=== PATIENT | female | born 1985 | race Caucasian/White ===

== ENCOUNTER 2016-10-16 15:25 | Emergency (ER) | payer OTHER ==
[~2016-10-16] VITALS: Ht 165.1 cm; Wt 61.2 kg
[2016-10-16 15:43] LABS: ABSOLUTE BASOPHIL COUNT 0 /CUMM (0.0-0.2); ABSOLUTE EOSINOPHIL COUNT 0 /CUMM (0.0-0.7); ABSOLUTE GRANULOCYTE CT 5.6 /CUMM (1.4-6.5); ABSOLUTE LYMPH COUNT 1.8 /CUMM (1.2-3.4); ABSOLUTE MONOCYTE COUNT 0.5 /CUMM (0.10-0.60); BASOPHIL % 0.2 % (0.0-2.0); EOSINOPHIL % 0.3 % (0-5); GRANULOCYTE % 70.2 % (42.2-75.2); MEAN CORPUSCULAR HGB CONC 34.2 G/DL (33.0-37.0); MEAN CORPUSCULAR VOLUME 84.6 FL (81.0-99.0); MEAN PLATELET VOLUME 8.3 FL (7.4-10.4); PLATELET COUNT 173 /CUMM (130-400); RBC DISTRIBUTION WIDTH 12.5 % (11.5-14.5); RED BLOOD CELL CT 5.09 /CUMM (4.20-5.40)
--- NOTE | 2016-10-16 16:22 | ED GI/GU/ABDOMINAL COMPLAINT ---
History of Present Illness General Chief Complaint: Abdominal Pain/Flank Pain Stated Complaint: ABD PAIN R/O APPY PER WALK-IN Source: patient, family, old records Exam Limitations: no limitations Vital Signs & Intake/Output Vital Signs & Intake/Output Vital Signs Date Time Temp Pulse Resp B/P B/P Pulse O2 O2 Flow FiO2 Mean Ox Delivery Rate 10/16 1740 98.1 91 20 143/92 100 Room Air 10/16 1528 97.8 118 18 152/92 98 Room Air ED Intake and Output 10/17 0000 10/16 1200 Intake Total Output Total Balance Patient 135 lb Weight Weight Reported by Patient Measurement Method Allergies Coded Allergies: sulfamethoxazole (From BACTRIM) (Mild, RASH 10/16/16) trimethoprim (From BACTRIM) (Mild, RASH 10/16/16) Reconcile Medications Cholecalciferol (Vitamin D3) (Vitamin D3) (Unknown Strength) CAPSULE (Unknown Dose) PO DAILY SUPPLEMENT (Reported) Cyanocobalamin (Vitamin B-12) (Unknown Strength) TABLET (Unknown Dose) PO DAILY SUPPLEMENT (Reported) Desog-E.estradiol/E.estradiol (Kariva 28 Day Tablet) 0.15 MG-0.02 MG (21)/0.01 MG (5) TABLET 1 TAB PO DAILY CONTROL (Reported) Ketorolac Tromethamine 10 MG TABLET 1 TAB PO Q4 PRN Abdominal Pain Loratadine (Claritin) 10 MG TABLET 1 TAB PO DAILY ALLERGIES (Reported) Triage Note: 31 YO FEMALE TO TRIAGE C/O ABD PAIN. STATES PAIN STARTED IN MID ABD AND NOW HAS MOVED TO RLQ. +NAUSEA. SENT IN BY WALK IN TO R/O APPY. Triage Nurses Notes Reviewed? yes ? N Is pt currently ? No HPI: Ms Beckett is a 31-year-old female with past medical history or umbilical hernia done at age 9 who presented to the emergency department due to worsening abdominal pain. Patient states that her symptoms began at 7 PM last evening. Originating in the periumbilical area. This morning she woke up and went to work and found that the pain had migrated from the periumbilical area to the right lower quadrant. It is rated at a 7 out of 10 in severity. Described as a dull pain. Patient also endorses nausea however has had no episodes of any vomiting. She also endorses subjective chills. This morning prior to coming to the emergency department [facility] she was seen at a walk-in clinic where she was advised to come into the emergency department for additional workup. Patient primary care physician is Dr. BOOM Buchanan. (VERONICA STARKEY,SHLOMO) Past History Travel History Traveled to [place] past 21 day No Medical History Any Pertinent Medical History? see below for history Neurological: NONE EENT: NONE Cardiovascular: NONE Respiratory: NONE Gastrointestinal: NONE Hepatic: NONE Renal: NONE Musculoskeletal: NONE Psychiatric: NONE Endocrine: NONE Blood Disorders: NONE Cancer(s): NONE OR RN/Reproductive: NONE Surgical History Surgical History: none Psychosocial History What is your primary language Swedish Tobacco Use: Never used Family History Hx Contributory? No (VERONICA STARKEY,SHLOMO) Review of Systems Review of Systems Constitutional: Reports: see HPI, chills, weakness. Denies: diaphoresis, fever, malaise. Respiratory: Denies: hemoptysis, orthopnea, short of breath, sputum production. Cardiovascular: Denies: chest pain, edema, orthopena, palpitations. GI: Reports: abdominal pain, nausea. Denies: bloating, constipation, diarrhea, distention, bowel incontinence, bloody stool, changes in stool, vomiting. Genitourinary: Denies: discharge, dysuria, frequency, hematuria. Musculoskeletal: Denies: back pain, gout, joint pain, joint swelling. Skin: Denies: change in skin color, change in hair/nails, dryness, erythema, jaundice. Neurological/Psychological: Denies: anxiety, ataxia, cognitive dysfunction, confusion, depressed, dementia. (VERONICA STARKEY,SHLOMO) Physical Exam Physical Exam General Appearance: well developed/nourished, no apparent distress, alert, awake Eyes: Bilateral: PERRL, EOMI. Ears, Nose, Throat, Mouth: hearing grossly normal Neck: normal inspection Respiratory: normal breath sounds Cardiovascular: regular rate/rhythm Peripheral Pulses: 4+ dorsalis pedis (R), 4+ dorsalis pedis (L) Gastrointestinal: normal bowel sounds, guarding, rebound, tenderness (On Light Palpation), Periumbilical Scar Rectal: deferred Back: normal inspection Core Measures ACS in differential dx? No Severe Sepsis Present: No Septic Shock Present: No (SHLOMO MARTIN MD) Physical Exam Extremities: normal range of motion Neurologic/Psych: no motor/sensory deficits, awake, alert, oriented x 3 Skin: intact, normal color, warm/dry (CHELSIE STARKEY,SHAD) Progress Differential Diagnosis: appendicitis, endometritis, gastritis, pancreatitis Plan of Care: Orders Procedure Date/time Status Add-on Test (ER Only) 10/16 1622 Active C-REACTIVE PROTEIN 10/16 1534 Complete URINE 10/16 1530 Complete URINALYSIS 10/16 1530 Complete COMPREHENSIVE METABOLIC PANEL 10/16 1530 Complete CBC WITHOUT DIFFERENTIAL 10/16 1530 Complete Current Medications Sig/Christin Start time Last Medication Dose Stop Time Status Admin Ketorolac 30 MG ONCE ONE 10/16 1800 CAN Tromethamine 10/16 1801 (Toradol) Laboratory Tests 10/16/16 1545: Urine Color YEL, Urine Clarity CLEAR, Urine pH 6.0, Ur Specific Lyles 1.010, Urine Protein NEG, Urine Ketones 15 H, Urine Nitrite NEG, Urine Bilirubin NEG, Urine Urobilinogen 0.2, Ur Leukocyte Esterase NEG, Ur Microscopic EXAM NOT REQUIRED, Urine Hemoglobin NEG, Urine Glucose NEG, Urine Test NEGATIVE 10/16/16 1534: Anion Gap 14, Estimated GFR > 60, BUN/Creatinine Ratio 15.7, Glucose 88, Calcium 9.1, Total Bilirubin 0.7, AST 22, ALT 26, Alkaline Phosphatase 76, C-Reactive Prot, Quant 6.5 H, Total Protein 7.7, Albumin 4.2, Globulin 3.5, Albumin/ Globulin Ratio 1.2, CBC w Diff NO MAN DIFF REQ, RBC 5.09, MCV 84.6, MCH 29.0, RDW 12.5, MPV 8.3, Gran % 70.2, Lymphocytes % 22.6, Monocytes % 6.7, Eosinophils % 0.3, Basophils % 0.2, Absolute Granulocytes 5.6, Absolute Lymphocytes 1.8, Absolute Monocytes 0.5, Absolute Eosinophils 0, Absolute Basophils 0, PUBS MCHC 34.2 Initial ED EKG: none (VERONICA STARKEY,SHLOMO) Diagnostic Imaging: Viewed by Me: CT Scan. Discussed w/RAD: CT Scan. Comments: PATIENT: DONNY BECKETT PRESENT AGE: 31 PATIENT ACCOUNT NO: [id number] : 84 LOCATION: ER ORDERING PHYSICIAN: SHLOMO MARTIN MD SERVICE DATE: 10/16/16-1639 EXAM TYPE: CAT - CT ABD & PELVIS W IV CONTRAST EXAMINATION: CT ABDOMEN AND PELVIS WITH CONTRAST CLINICAL INFORMATION: Pain, abdominal guarding. Rebound tenderness. COMPARISON: None TECHNIQUE: Multidetector volumetric imaging was performed of the abdomen and pelvis before and after the IV administration of 95 mL of Optiray 320 intravenous contrast. Sagittal and coronal reformatted images were obtained on the technologist's workstation. DLP: 286 mGy-cm FINDINGS: LUNG BASES: The visualized lung bases are unremarkable. LIVER, GALLBLADDER, AND BILIARY TREE: The liver is normal in size, shape, and attenuation. No focal hepatic lesion or biliary ductal dilatation is present. The gallbladder is unremarkable with no evidence of radiopaque gallstones, gallbladder wall thickening, or obvious pericholecystic inflammatory changes. PANCREAS: Unremarkable. SPLEEN: Unremarkable. ADRENAL GLANDS: Unremarkable. KIDNEYS AND URETERS: The kidneys are normal in size, shape, and attenuation. No hydronephrosis, hydroureter, or calculi seen. No perinephric stranding. BLADDER: Unremarkable. GASTROINTESTINAL TRACT: The stomach and small bowel are unremarkable. No dilated loops of bowel or evidence of obstruction. No colonic wall thickening or inflammatory change. Moderate colonic stool burden. The appendix is normal. It is in a retrocecal position. ABDOMINAL WALL: No significant hernia is appreciated. LYMPH NODES: Mildly prominent central mesenteric lymph nodes. For instance, there is a 1.7 x 0.7 cm node on series 2 image 47. No retroperitoneal lymphadenopathy. VASCULAR: Unremarkable. PELVIC VISCERA: The uterus and adnexa are unremarkable. OSSEOUS STRUCTURES: No acute or suspicious osseous abnormality. IMPRESSION: Normal appendix. Mildly prominent central mesenteric lymph nodes are nonspecific. This could represent mesenteric adenitis. No retroperitoneal lymphadenopathy. If symptoms persist, follow-up could be performed to exclude a lymphoproliferative process. DICTATED BY: CASH STARKEY,ELIZA DATE/TIME DICTATED:10/16/161738 BAKELITE MOLDER:MILADY DATE/TIME TRANSCRIBED:10/16/161738 CONFIDENTIAL, DO NOT COPY WITHOUT APPROPRIATE AUTHORIZATION. <Electronically signed in Other Vendor System> SIGNED BY: CASH STARKEY,ELIZA 10/16 1748 (SHAD HOLGUIN MD) Departure Departure Disposition: HOME OR SELF CARE Condition: Stable Clinical Impression Primary Impression: Mesenteric adenitis Referrals: HAI SATRKEY,DONNA T. Please follow-up with the clinic coordinator in the next seven days. BARBARA STARKEY,Toya BUCIO (PCP/Family) Additional Instructions: Please inform your primary care physician of this visit to the emergency department this afternoon. Please inform your primary care physician of the treatment administered to you. Please advance your diet as tolerated. Please take medications as needed for local pain relief. We have given you a referral for gastroenterology. Please follow-up with them in the next 24-48 hours. If you feel your pain is worsening, or you develop fever, chills, nausea, vomiting please come back to the emergency department for an additional workup. Departure Forms: Customer Survey General Discharge Information Prescriptions: Current Visit Scripts Ketorolac Tromethamine 1 TAB PO Q4 PRN Abdominal Pain #20 TAB (VERONICA STARKEY,[facility]) Resident Co-Sign Statement Statement: ED Attending supervision documentation- [X] I saw and evaluated the patient. I have also reviewed all the pertinent lab results and diagnostic results. I agree with the findings and the plan of care as documented in the Resident's documentation. [X] I have reviewed the ED Record and agree with the Resident's documentation. [] Additions or exceptions (if any) to the Resident's note and plan are summarized below: [] (SHAD HOLGUIN MD) ED Attending Observation Initial Observation Note: I have seen and personally examined DONNY BECKETT on 10/17/16 at 1336. I agree with the current emergency department documentation. The disposition (admission or discharge) is uncertain at this time, she needs a period of observation for the following reason(s): The ED Nurse caring for this patient has been personally informed as to what the patient is being observed for. (SHAD HOLGUIN MD)
[2016-10-16] MEDS ORDERED: KARIVA 28 DAY1 EACH PO (16:29)
[2016-10-16] MEDS ORDERED: CLARITIN10 M1 PO (16:30)
[2016-10-16] MEDS ORDERED: VITAMIN B-121000 MC3 PO (16:30)
[2016-10-16] MEDS ORDERED: VITAMIN D31000 UNI1 PO (16:30)
[2016-10-16 17:40] VITALS: BP 143/92
--- NOTE | 2016-10-16 17:48 | CT SCAN REPORT ---
EXAMINATION: CT ABDOMEN AND PELVIS WITH CONTRAST CLINICAL INFORMATION: Pain, abdominal guarding. Rebound tenderness. COMPARISON: None TECHNIQUE: Multidetector volumetric imaging was performed of the abdomen and pelvis before and after the IV administration of 95 mL of Optiray 320 intravenous contrast. Sagittal and coronal reformatted images were obtained on the technologist's workstation. DLP: 286 mGy-cm FINDINGS: LUNG BASES: The visualized lung bases are unremarkable. LIVER, GALLBLADDER, AND BILIARY TREE: The liver is normal in size, shape, and attenuation. No focal hepatic lesion or biliary ductal dilatation is present. The gallbladder is unremarkable with no evidence of radiopaque gallstones, gallbladder wall thickening, or obvious pericholecystic inflammatory changes. PANCREAS: Unremarkable. SPLEEN: Unremarkable. ADRENAL GLANDS: Unremarkable. KIDNEYS AND URETERS: The kidneys are normal in size, shape, and attenuation. No hydronephrosis, hydroureter, or calculi seen. No perinephric stranding. BLADDER: Unremarkable. GASTROINTESTINAL TRACT: The stomach and small bowel are unremarkable. No dilated loops of bowel or evidence of obstruction. No colonic wall thickening or inflammatory change. Moderate colonic stool burden. The appendix is normal. It is in a retrocecal position. ABDOMINAL WALL: No significant hernia is appreciated. LYMPH NODES: Mildly prominent central mesenteric lymph nodes. For instance, there is a 1.7 x 0.7 cm node on series 2 image 47. No retroperitoneal lymphadenopathy. VASCULAR: Unremarkable. PELVIC VISCERA: The uterus and adnexa are unremarkable. OSSEOUS STRUCTURES: No acute or suspicious osseous abnormality. IMPRESSION: Normal appendix. Mildly prominent central mesenteric lymph nodes are nonspecific. This could represent mesenteric adenitis. No retroperitoneal lymphadenopathy. If symptoms persist, follow-up could be performed to exclude a lymphoproliferative process.
[2016-10-16] MEDS ORDERED: KETOROLAC TROME10 M1 PO (18:10)
== END 2016-10-16 18:28 ==
LOC: ERH 15:25
PROVIDERS: Emergency Medicine
DX: I88.0 Nonspecific mesenteric lymphadenitis (principal)
CPT/HCPCS: 74177; 81003; 81025; 96374; J1885